=== PATIENT | female | born 1980 | race Caucasian/White ===

== ENCOUNTER 2018-03-17 14:31 | Outpatient (REF) | payer MEDICAID, SELFPAY ==
--- NOTE | 2018-03-17 13:30 | PAPFT_PTH ---
PATIENT: Anika Arreguin LOC: [facility] U#:[id number] AGE/SX: 37/F ROOM: RE03/17/[address]: Medina Clemens : 1980 BED: DIS: 03/17/2018 SPEC #: [id number] RECD: 03/18/18 12:55 STATUS: AJ REQ #: [id number] TYRONE: 03/17/18 13:[address]: Medina Clemens DEPT: [facility]ology RECD BY: Janny oLcke ENTERED: 03/18/18 12:55 SP TYPE: PAPFT OTHR DR: Lucina Gage Tissues: 1 - CX/ENDOCX FOR PAP SMEARS Procedures: PAP THIN PREP/[facility] Screening Comments: [id number]
== END 2018-03-17 14:51 ==
LOC: NCHCN 14:31
PROVIDERS: PCP Nurse Practitioner Family; Visit Provider Family Medicine
DX: Z12.4 Encounter for screening for malignant neoplasm of cervix (principal); Z00.00 Encounter for general adult medical examination without abnormal findings
CPT/HCPCS: 88142

== ENCOUNTER 2019-04-22 12:52 | Outpatient (REF) | payer MEDICAID, SELFPAY ==
[2019-04-22 18:59] LABS: ALT 23 U/L (14-59); AST 21 U/L (15-37); Albumin 3.6 g/dL (3.4-5.0); Alkaline Phosphatase 54 U/L (46-116); BUN 13 mg/dL (7-18); Bilirubin, Total 0.3 mg/dL (0.2-1.0); CREATININE 0.79 mg/dL (0.55-1.02); Calcium 8.9 mg/dL (8.5-10.1); Chloride 106 mmol/L (98-107); Glucose 93 mg/dL (74-106); Potassium 4.9 mmol/L (3.5-5.1); Sodium 141 mmol/L (136-145); TSH (W/Ref FT4) 2.11 uIU/mL (0.36-3.74)
[2019-04-22 19:13] LABS: Vitamin D 25 Total 28.4 ng/ml (30-100)
== END 2019-04-22 13:12 ==
LOC: NCHCN 12:52
PROVIDERS: PCP Nurse Practitioner; Visit Provider Nurse Practitioner
DX: Z00.00 Encounter for general adult medical examination without abnormal findings (principal); Z13.29 Encounter for screening for other suspected endocrine disorder; Z13.228 Encounter for screening for other metabolic disorders; Z13.21 Encounter for screening for nutritional disorder
CPT/HCPCS: 80053; 82306; 84443

== ENCOUNTER 2022-05-02 12:24 | Outpatient (REF) | payer MEDICAID, SELFPAY ==
--- NOTE | 2022-05-02 11:55 | PAPFT_PTH ---
PATIENT: KallieAnika Campuzano LOC: [facility] U#:[id number] AGE/SX: 41/F ROOM: RE05/02/[address]: ISIDRA LOZADA : 1980 BED: DIS: 05/02/2022 SPEC #: [id number] RECD: 05/02/22 17:38 STATUS: AJ REQ #: [id number] TYRONE: 05/02/22 11:[address]: Isidra Lozada DEPT: [facility] Cytology RECD BY: Janny Locke ENTERED: 05/02/22 17:38 SP TYPE: PAPFT OTHR DR: Anika Ybarra Tissues: 1 - CX/ENDOCX FOR PAP SMEARS Procedures: PAP THIN PREP/[facility] Screening HPV DNA PROBE Comments: [id number] (CHLAMYDIA/GC)
[2022-05-02 15:17] LABS: Abs Immature Grans 0.01 10^3/uL (0.0-0.06); Absolute Basophil Count 0.08 10^3/uL (0.0-0.2); Absolute Eosinophil Count 0.17 10^3/uL (0.0-0.7); Absolute Lymphocyte Count 2.28 10^3/uL (1.2-3.4); Absolute Monocyte Count 0.54 10^3/uL (0.1-0.8); Absolute Neutrophil Count 4.16 10^3/uL (1.2-6.7); Basophils % 1.1; Eosinophils % 2.3; HCT 43.6 % (36.0-46.0); HGB 14.4 g/dL (11.2-15.7); Immature Grans % 0.1; Lymphocytes % 31.5; MCH 30.4 pg (27.0-33.0); MCV 92 fL (80-95); MPV 12.4 fL (8.0-11.0); Monocytes % 7.5; Neutrophils % 57.5; Platelet Count 213 10^3/uL (130-400); RBC 4.73 10^6/uL (3.93-5.22); RDW 12.5 % (11.7-14.6); RDW-SD 42.3 fL; WBC 7.24 10^3/uL (4.4-10.8)
[2022-05-02 15:50] LABS: Calculated LDL 103 mg/dL (<100); Cholesterol 167 mg/dL (<200); HDL Cholesterol 54 mg/dL (40-60); TSH (W/Ref FT4) 2.01 uIU/mL (0.36-3.74); Triglyceride 52 mg/dL (<150)
[2022-05-03 14:33] LABS: Chlamydia Result Negative (Negative); GC Result Negative (Negative)
== END 2022-05-02 12:25 | disposition home or self-care (01) ==
LOC: NCHCN 12:24
PROVIDERS: PCP Nurse Practitioner; Visit Provider Nurse Practitioner Family
DX: R63.4 Abnormal weight loss (principal); Z13.220 Encounter for screening for lipoid disorders; Z12.4 Encounter for screening for malignant neoplasm of cervix; Z11.51 Encounter for screening for human papillomavirus (HPV)
CPT/HCPCS: 80061; 87491; 87591; 88142; 84443; 85025; 87624

== ENCOUNTER 2022-05-20 01:02 | Outpatient (CLI) | payer MEDICAID, SELFPAY ==
--- NOTE | 2022-05-20 12:15 | DI.MAMMO_ITS ---
Exam(s) MAMMO SCREENING EXAM: MAMMO SCREENING CLINICAL HISTORY: SCREENING, Z12.39; FAMILY H/O BREAST CA-MOTHER, Z80.3 TECHNIQUE: Mammograms were interpreted according to the usual protocol including computer analysis w [employer] CAD system, tomosynthesis and C-view imaging. COMPARISON: None, baseline examination. FINDINGS: The breasts are composed of heterogeneously dense fibroglandular densities, Breast Density category C . No suspicious masses or suspicious microcalcifications are seen. No skin thickening or abnormal axillary lymph nodes are seen. IMPRESSION: BI-RADS Category 1, Negative mammogram. Yearly screening mammography is recommended. Breast Density Category C, heterogeneously Dense. The mammogram demonstrates the patient's breast tissue is dense. Dense breast tissue is very common a nd is not abnormal but dense breast tissue can make it harder to find cancer on a mammogram. Also, de nse breast tissue may increase breast cancer risk. This information about the result of the mammogram report was provided to the patient to raise their awareness. Use this report when you speak with the patient about their risks for breast cancer, which includes their family history. At that time, you may recommend additional screening tests (Ultrasound or MRI) as they might be useful based on their r isk. A negative radiographic report should not delay biopsy if a dominant or clinically suspicious mass is present. Up to ten percent of cancers are not identified on mammography. A negative report may reinforce clinical impression. Adenosis and dense breasts may obscure an underlying neoplasm. False positive reports average 6 to 10%.
== END 2022-05-20 01:22 ==
LOC: DI 01:02
PROVIDERS: PCP Nurse Practitioner; Visit Provider Nurse Practitioner Family
DX: Z12.31 Encounter for screening mammogram for malignant neoplasm of breast (principal); R92.8 Other abnormal and inconclusive findings on diagnostic imaging of breast
CPT/HCPCS: 77063; 77067

== ENCOUNTER 2023-06-17 04:44 | Outpatient (CLI) | payer MEDICAID, SELFPAY ==
[2023-06-17] MEDS: Levalbuterol HFA 15 GM INH 4 PUFF IH (14:10)
[2023-06-17] MEDS: Inhaler, Assist Device 1 EACH MC (14:10)
--- NOTE | 2023-06-19 14:38 | W.PFT ---
Date of service: 06/17/23 Time of Service: 12:59 Pulmonary Function Test Result Indications: Dyspnea Interpretation Spirometry: There is mild airflow limitation. There is a significant bronchodilator response. Inspiratory loop blunting. Lung Volumes: There is air trapping Diffusion Capacity: Unable to perform due to patient performance Airway Pressure: Normal airway resistance Impression Mild airflow obstruction with a significant bronchodilator response. The inspiratory loop blunting may represent vocal cord dysfunction. Clinical Correlation therefore is recommended.
== END 2023-06-17 04:45 | disposition home or self-care (01) ==
LOC: RT 04:45
PROVIDERS: Visit Provider Nurse Practitioner Family
DX: R06.00 Dyspnea, unspecified (principal); R94.2 Abnormal results of pulmonary function studies
CPT/HCPCS: 94060; 94726

== ENCOUNTER 2024-07-12 00:57 | Outpatient (CLI) | payer MEDICAID, SELFPAY ==
--- NOTE | 2024-07-12 | DI.MAMMO_ITS ---
Exam(s) MAMMO SCREENING EXAM: MAMMO SCREENING CLINICAL HISTORY: SCREENING MAMMO Z12.31. TECHNIQUE: Bilateral full field digital CC and MLO mammographic images were obtained with 3D tomosyn thesis and utilizing computer aided detection (CAD). COMPARISON: Prior baseline mammogram of May 2022 was reviewed FINDINGS: The fibroglandular tissue pattern is again noted be moderately dense. There are no CAD designations. No new findings in left breast. In the right breast there is a new nodular density located laterally, approximately 3.5 cm in from th e nipple on the CC view and measuring approximately 8 by 6 mm. Requires further investigation. There are no malignant-appearing microcalcification groups in this region nor elsewhere in either jreonimo ast. There is no significant architectural distortion nor skin thickening-retraction. IMPRESSION: 1. No radiographic evidence of malignancy in left breast. 2. New oval noncalcified nodular density in the right breast approximately 8 x 6 mm. Spot compressio n view and breast ultrasound recommended. BI-RADS Category 0 - Incomplete: Need additional imaging evaluation Breast Density - Category C - Heterogeneously dense Breast density Category C or D implies that the patient has dense breast tissue. Dense breast tissue can make it harder to find cancer on a mammogram. Dense breast tissue is also associated with an incr eased risk of breast cancer. This information about the result of the mammogram report was provided to the patient to raise their awareness. Use this report when you speak with the patient about their risks for breast cancer, which includes their family history. At that time, you may recommend additional screening tests (Ultrasoun d or MRI) as these tests may add significant information. A negative radiographic report should not delay biopsy if a dominant or clinically suspicious mass is present. Up to ten percent of cancers are not identified on mammography. A negative report may reinforce clinical impression. Adenosis and dense breasts may obscure an underlying neoplasm. False positive reports average 6 to 10%. Patient will receive a letter notifying them of these results.
== END 2024-07-12 01:17 ==
LOC: DI 00:57
PROVIDERS: Visit Provider Nurse Practitioner Family
DX: Z12.31 Encounter for screening mammogram for malignant neoplasm of breast (principal); R92.333 Mammographic heterogeneous density, bilateral breasts
CPT/HCPCS: 77063; 77067

== ENCOUNTER 2024-07-14 13:09 | Outpatient (REF) | payer MEDICAID, SELFPAY ==
[2024-07-14 15:25] LABS: Abs Immature Grans 0.02 10^3/uL (0.0-0.06); Absolute Basophil Count 0.05 10^3/uL (0.0-0.2); Absolute Eosinophil Count 0.22 10^3/uL (0.0-0.7); Absolute Lymphocyte Count 2.24 10^3/uL (1.2-3.4); Absolute Neutrophil Count 3.26 10^3/uL (1.2-6.7); Basophils % 0.8 %; Eosinophils % 3.4 %; HCT 43.5 % (36.0-46.0); HGB 14.2 g/dL (11.2-15.7); Immature Grans % 0.3 %; Lymphocytes % 35.1 %; MCH 31.1 pg (27.0-33.0); MCHC 32.6 % (32.0-36.0); MCV 95 fL (80-95); MPV 12.4 fL (8.0-11.0); Monocytes % 9.4 %; Platelet Count 242 10^3/uL (130-400); RBC 4.56 10^6/uL (3.93-5.22); RDW 12.7 % (11.7-14.6); RDW-SD 44.4 fL; WBC 6.39 10^3/uL (4.4-10.8)
[2024-07-14 15:47] LABS: ALT 23 U/L (14-59); AST 26 U/L (15-37); Albumin 4.1 g/dL (3.4-5.0); Alkaline Phosphatase 59 U/L (46-116); BUN 6 mg/dL (7-18); Bilirubin, Total 0.4 mg/dL (0.2-1.0); CREATININE 0.9 mg/dL (0.55-1.02); Calcium 9.5 mg/dL (8.5-10.1); Chloride 109 mmol/L (98-107); Estimated GFR 80.84 (mL/min/1.73m2); Glucose 92 mg/dL (74-106); Potassium 4.9 mmol/L (3.5-5.1); Sodium 144 mmol/L (136-145); TSH (W/Ref FT4) 1.37 uIU/mL (0.36-3.74); Total Protein 7.4 g/dL (6.4-8.2)
== END 2024-07-14 13:10 | disposition home or self-care (01) ==
LOC: NCHCN 13:09
PROVIDERS: Visit Provider Nurse Practitioner Family
DX: F41.9 Anxiety disorder, unspecified (principal)
CPT/HCPCS: 80053; 84443; 85025

== ENCOUNTER 2024-07-19 01:45 | Outpatient (CLI) | payer MEDICAID, SELFPAY ==
--- NOTE | 2024-07-19 | DI.US_ITS ---
Exam(s) MG MAMMO SCREEN CALL BACK UNI US BREAST RT LIMITED EXAM: MG MAMMO SCREEN CALL BACK UNI and U/S breast RT limited CLINICAL HISTORY: R92.8 ABN Mammo, New oval noncalcified nodulr density RT breast @8X6mm. TECHNIQUE: Craniocaudal and mediolateral oblique Full Field Digital Mammography views of the right b reast with Computer Aided Diagnosis followed by Tomosynthesis and limited right breast ultrasound. COMPARISON: Comparison is made with prior examinations. FINDINGS: Mammography/Tomosynthesis: Masses/Architectural Distortion: There is again seen a well-circumscribed nodule in the outer right b reast on the craniocaudad view. No areas of architectural distortion are seen. Microcalcifictions: No suspicious pleomorphic-type are seen. Skin Thickening/Nipple Retraction: None. Limited right breast US: Echotexture: Normal appearance of the glandular tissue. Shadowing: No suspicious foci. Cyst: There are 2 adjacent simple cysts seen at the 8 o'clock position 2 cm from the nipple. The lar ken measures 0.5 x 0.3 x 0.5 cm. The smaller measures 0.5 x 0.3 x 0.4 cm. There is also a 0.4 x 0.3 x 0.3 cm simple cyst at the 10 o'clock position of the right breast 2 cm from the nipple. This woul d appear to correspond to the mammographic abnormality. Solid lesions: None seen. Ductal dilation: None. IMPRESSION: 1. No evidence of malignancy is noted. 2. Unless there is more urgent need, follow-up screening mammography is recommended, as per [employer] guidelines. 3. The findings were discussed with the patient on the date of the examination. BI-RADS Category 2 - Benign Findings Breast Density - Category C - Heterogeneously dense Breast density Category C or D implies that the patient has dense breast tissue. Dense breast tissue can make it harder to find cancer on a mammogram. Dense breast tissue is also associated with an incr eased risk of breast cancer. This information about the result of the mammogram report was provided to the patient to raise their awareness. Use this report when you speak with the patient about their risks for breast cancer, which includes their family history. At that time, you may recommend additional screening tests (Ultrasoun d or MRI) as these tests may add significant information. A negative radiographic report should not delay biopsy if a dominant or clinically suspicious mass is present. Up to ten percent of cancers are not identified on mammography. A negative report may reinforce clinical impression. Adenosis and dense breasts may obscure an underlying neoplasm. False positive reports average 6 to 10%. Patient will receive a letter notifying them of these results.
== END 2024-07-19 02:05 ==
LOC: DI 01:45
PROVIDERS: Visit Provider Nurse Practitioner Family
DX: Z12.31 Encounter for screening mammogram for malignant neoplasm of breast (principal); R92.8 Other abnormal and inconclusive findings on diagnostic imaging of breast
CPT/HCPCS: 76642; 77063; 77067

== ENCOUNTER 2025-03-11 10:20 | Outpatient (CLI) | payer MEDICAID, SELFPAY | END 2025-03-11 10:21 | disposition home or self-care (01) | PROVIDERS: PCP Family Medicine; Visit Provider Family Medicine | DX: R00.2 Palpitations (principal) | CPT/HCPCS: 93246 ==